=== PATIENT | female | born 1940 | race Caucasian/White ===

== ENCOUNTER 2023-10-30 11:01 | Emergency (ER) | payer MEDICARE, SELFPAY ==
[2023-10-30 11:14] VITALS: BP 141/73; PULSE 70; RESP 16; TEMP 36.8; O2SAT 93
--- NOTE | 2023-10-30 11:15 | XRR_ITS ---
PROCEDURE INFORMATION: Exam: XR Chest Exam date and time: 10/30/2023 11:22 AM Age: 82 years old Clinical indication: Other: Weakness TECHNIQUE: Imaging protocol: Radiologic exam of the chest. Views: 1 view. COMPARISON: No relevant prior studies available. FINDINGS: Lungs: Slight infiltrate, atelectasis, and/or scarring/fibrosis lung bases bilaterally, right perihilar area, of uncertain age. Pleural spaces: No large or obvious pneumothorax nor pleural effusion seen. Heart/Mediastinum: Heart size appears upper limits of normal. Vasculature: Atherosclerotic disease aorta. Bones/joints: Curvature, degenerative changes spine. Other findings: Patient appears rotated slightly to the right. XR/XR chest 1V portable [id number] IMPRESSION: Slight infiltrate, atelectasis, and/or scarring/fibrosis lung bases bilaterally, right perihilar area, of uncertain age.
--- NOTE | 2023-10-30 11:22 | USCV_ITS ---
Deb Du Age: 82 Gender: F : 1940 Exam Date: 10/30/2023 11:52 Ordering Phys: Jorge Hernandez MD Technologist: Exam Location: [facility] [place] Indication: bilat edema PROCEDURES: Venous duplex imaging was performed in bilateral lower extremities. The venous duplex Doppler examination of both lower extremities was performed in the standard fashion. FINDINGS: Normal 2-D Doppler and augmentation and compressibility throughout the lower extremity venous structures. Additional imaging through the proximal calf veins also reveals no thrombus. Limited evaluation of the greater saphenous vein is patent with no thrombus. CONCLUSIONS No evidence of right lower extremity DVT. No evidence of left lower extremity DVT. Carl Buckner MD (Electronically Signed) Final Date: 30 Oct 2023 15:22 S
--- NOTE | 2023-10-30 11:28 | ED_ITS ---
HPI - General Adult 2 General: Chief complaint: General Medical Stated complaint: ankle swelling, decreased urine, fatigue, low bp Time Seen by Provider: 10/30/23 11:08 Source: patient Mode of arrival: ambulatory Limitations: no limitations History of Present Illness: 82-year-old female states over the last 5 to 6 days she has been having some increased swelling in her ankles along with a slight weight gain. She states she had some decreased urination and fatigue she denies any leg pain denies any shortness of breath denies any chest pain have a history of A-fib states she is on a water pill as well. Denies any vomiting or diarrhea Associated symptoms: Deny chest pain, dyspnea, headache(s), nausea, rash or vomiting Review of Systems 2 Const: Reports: fatigue; Denies: fever(s), chills, body aches or change in appetite ENMT: Denies: throat pain or dental pain Card: Denies: chest pain Resp: Denies: dyspnea GI: Denies: abdominal pain, nausea, vomiting or diarrhea : Reports: oliguria; Denies: dysuria Musc: Reports: extremity swelling; Denies: neck pain or back pain Skin/Breast: Denies: rash Neuro: Denies: headache(s) Physical Exam 2 Const: COMMON NORMALS: patient oriented x3 HENMT: COMMON NORMALS: normocephalic and atraumatic HEAD & SCALP: n ormocephalic and atraumatic Eye: COMMON NORMALS: conjunctivae normal CONJUNCTIVA: Yes conjunctivae normal Neck/C-Spine: COMMON NORMALS: full ROM and supple Chest: COMMONS NORMALS: normal inspection of the chest and normal palpation of entire chest wall Resp: COMMON NORMALS: normal respiratory effort, No retractions, No use of accessory muscles and clear to auscultation bilaterally AUSCULTATION: clear to auscultation bilaterally Cardio: COMMON NORMALS: regular rate, regular rhythm and No murmurs present (Cardio) RATE: regular rate RHYTHM: regular rhythm GI: COMMON NORMALS: Normal to inspection, nondistended, normoactive bowel sounds present, Soft to palpation, non-tender and no masses PALPATION: Yes Soft to palpation Extremity: COMMON NORMALS: full ROM NARRATIVE EXTREMITY EXAM: 1+ edema Neuro: COMMON NORMALS: patient oriented x3, moves all extremities and no focal motor deficits Psych: COMMON NORMALS: mental status grossly normal, Normal thought process present and cooperative THOUGHT PROCESS: Normal thought process present Skin: COMMON NORMALS: no rashes or lesions noted and no wounds GENERAL SKIN EXAM: no rashes or lesions noted Course 2 Vital Signs: Vital signs: Vital Signs Temperature 98.3 F 10/30/23 11:14 Pulse Rate 67 10/30/23 12:30 Respiratory Rate 18 10/30/23 11:38 Blood Pressure 144/76 10/30/23 12:19 Pulse Oximetry 92 10/30/23 12:30 Oxygen Delivery Me thod Room Air 10/30/23 12:30 MDM - General Adult Medical Decision Making Patient presents here with lower extremity edema. Slight pneumonia on x-ray she has been well-appearing here no signs of severe heart failure she feels improved after IV Lasix she is continue home meds will start on doxycycline follow-up with PCP return if worsening. Medical Records I reviewed the patient's medical records. Lab Data I reviewed the patient's lab results. 10/30/23 11:32 10/30/23 11:32 Radiology Impressions Chest X-Ray 10/30/23 11:15 IMPRESSION: Slight infiltrate, atelectasis, and/or scarring/fibrosis lung bases bilaterally, right perihilar area, of uncertain age. Laboratory Results WBC 7.95 10^3/uL (3.29-11.43) 10/30/23 11:32 RBC 4.41 10^6/uL (3.85-5.65) 10/30/23 11:32 Hgb 13.10 g/dL (11.27-16.99) 10/30/23 11:32 Hct 39.6 % (36-47) 10/30/23 11:32 MCV 89.8 fl (85-98) 10/30/23 11:32 MCH 29.7 pg (27-33) 10/30/23 11:32 MCHC 33.1 g/dL (30-55) 10/30/23 11:32 RDW 13.7 % (12.1-15.1) 10/30/23 11:32 Plt Count 278 10^3/cmm (157-399) 10/30/23 11:32 MPV 9.3 fL (7.4-10.4) 10/30/23 11:32 Neut % (Auto) 72.3 % 10/30/23 11:32 Lymph % (Auto) 16.9 % 10/30/23 11:32 [place] % (Auto) 6.8 % 10/30/23 11:32 Eos % (Auto) 3.0 % 10/30/23 11:32 Baso % (Auto) 0.5 % 10/30/23 11:32 Neut # (Auto) 5.75 10^3/uL (1.8-7.7) 10/30/23 11:32 Lymph # (Auto) 1.3 10^3/uL (0.8-4.8) 10/30/23 11:32 [place] # (Auto) 0.5 10^3/uL (0.2-0.9) 10/30/23 11:32 Eos # (Auto) 0.2 10^3/uL (0.0-0.8) 10/30/23 11:32 Baso # (Auto) 0.0 10^3/uL (0.0-0.1) 10/30/23 11:32 Nucleated RBC % (auto) 0 % 10/30/23 11:32 Nucleated RBCs # 0.0 /100WBC 10/30/23 11:32 PT 12.90 SECONDS (12.1-14.9) 10/30/23 11:32 INR 0.95 (0.8-1.2) 10/30/23 11:32 Sodium 140 mmol/L (136-145) 10/30/23 11:32 Potassium 4.0 mmol/L (3.5-5.1) 10/30/23 11:32 Chloride 104 mmol/L (98-107) 10/30/23 11:32 Carbon Dioxide 23 mmol/L (22-29) 10/30/23 11:32 Anion Gap 17.0 (5-19) 10/30/23 11:32 BUN 11 mg/dL (8-23) 10/30/23 11:32 Creatinine 0.4 mg/dL (0.5-0.9) L 10/30/23 11:32 GFR Calculation Not Reportable 10/30/23 11:32 Glucose 111 mg/dL (65-115) 10/30/23 11:32 Calculated Osmolality 290 mOsm/kg (285-295) 10/30/23 11:32 Calcium 9.7 mg/dL (8.5-10.5) 10/30/23 11:32 Total Bilirubin 0.4 mg/dL (0.15-1.2) 10/30/23 11:32 AST 19 U/L (0-32) 10/30/23 11:32 ALT 14 U/L (0-33) 10/30/23 11:32 Alkaline Phosphatase 110 U/L (35-105) H 10/30/23 11:32 NT-Pro-B Natriuret Pep 2141 pg/mL (0-450) H 10/30/23 11:32 Total Protein 7.1 g/dL (6.6-8.7) 10/30/23 11:32 Albumin 4.0 g/dL (3.5-5.2) 10/30/23 11:32 Globulin 3.1 g/dL (1.3-4.6) 10/30/23 11:32 TSH 1.27 uIU/mL (0.27-4.20) 10/30/23 11:32 Urine Color Yellow (Yellow) 10/30/23 11:45 Urine Appearance Clear (CLEAR) 10/30/23 11:45 Urine pH 6 (5-7) 10/30/23 11:45 Ur Specific [place] 1.005 (1.005-1.030) 10/30/23 11:45 Urine Protein Neg (Negative) 10/30/23 11:45 Urine Glucose (UA) Norm (Normal) 10/30/23 11:45 Urine Ketones Negative (Negative) 10/30/23 11:45 Urine Blood Neg (Negative) 10/30/23 11:45 Urine Nitrate Negative (Negative) 10/30/23 11:45 Urine Bilirubin Neg (Negative) 10/30/23 11:45 Urine Urobilinogen Norm mg/dL (Negative) 10/30/23 11:45 Ur Leukocyte Esterase Negative (Negative) 10/30/23 11:45 All radiology interpretation(s) finalized by discharge EKG Data EKG 1: I personally reviewed and interpreted this EKG as follows: EKG interpretation date: 10/30/23 EKG interpretation time: 12:16 Interpretation: nsr hr [address] or t wave abnormalities qrs 98 qtc 433 Computer generated interpretation: Chest X-Ray 10/30/23 11:15 IMPRESSION: Slight infiltrate, atelectasis, and/or scarring/fibrosis lung bases bilaterally, right perihilar area, of uncertain age. Discharge Plan Discharge Patient Disposition: Home Clinical Impression: Pneumonia, Bilateral edema of lower extremity Condition: Stable Prescriptions: New doxycycline hyclate 100 mg tablet 100 mg PO BID 7 Days Qty: 14 0RF No Action trazodone 50 mg tablet 50 mg PO BEDTIME pravastatin 40 mg tablet 40 mg PO DAILY sertraline 100 mg Tablet 100 mg PO DAILY vitamin A 3,000 mcg (10,000 unit) Capsule 3,000 mcg PO DAILY gemfibrozil 600 mg tablet 600 mg PO BID gabapentin 300 mg capsule 300 mg PO TID montelukast 10 mg tablet 10 mg PO DAILY hydrochlorothiazide 25 mg tablet 25 mg PO QAM fluocinonide 0.05 % solution 1 applic TOPICAL BID PRN (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
[2023-10-30 11:38] VITALS: BP 139/75; PULSE 64; RESP 18; O2SAT 90
[2023-10-30 11:40] LABS: Basophils % 0.5 %; Eosinophils # 0.2 10^3/uL (0.0-0.8); Hematocrit 39.6 % (36-47); Lymphocytes # 1.3 10^3/uL (0.8-4.8); Lymphocytes % 16.9 %; Mean Corpuscular HGB Conc 33.1 g/dL (30-55); Mean Corpuscular Hemoglobin 29.7 pg (27-33); Mean Corpuscular Volume 89.8 fl (85-98); Mean Platelet Volume 9.3 fL (7.4-10.4); Monocytes # 0.5 10^3/uL (0.2-0.9); Monocytes % 6.8 %; Neutrophils # 5.75 10^3/uL (1.8-7.7); Neutrophils % 72.3 %; Nucleated Red Blood Cells % 0 %; Platelet Count 278 10^3/cmm (157-399); Red Blood Count 4.41 10^6/uL (3.85-5.65); Red Cell Distribution Width 13.7 % (12.1-15.1); White Blood Count 7.95 10^3/uL (3.29-11.43)
[2023-10-30 11:51] LABS: INR 0.95 (0.8-1.2)
[2023-10-30 12:03] LABS: Add Urine Microscopic? NO; Charge for UA Resulting for Rev
[2023-10-30 12:04] LABS: Glucose Urine UA Norm (Normal); Ketones Urine Negative (Negative); Protein Urine Neg (Negative); Specific Gravity, Urine 1.005 (1.005-1.030); Urine Appearance Clear (CLEAR); Urine Color Yellow (Yellow); pH Urine 6 (5-7)
[2023-10-30 12:05] LABS: Bilirubin Urine Neg (Negative); Blood Urine Neg (Negative); Leukocyte Esterase Urine Negative (Negative); Nitrate Urine Negative (Negative); Urobilinogen Urine Norm (Negative)
[2023-10-30 12:08] LABS: Alanine Aminotransferase 14 U/L (0-33); Alkaline Phosphatase 110 U/L (35-105); Aspartate Amino Transferase 19 U/L (0-32); Blood Urea Nitrogen 11 mg/dL (8-23); Calcium 9.7 mg/dL (8.5-10.5); Carbon Dioxide 23 mmol/L (22-29); Chloride 104 mmol/L (98-107); Globulin 3.1 g/dL (1.3-4.6); Glucose 111 mg/dL (65-115); NT Pro B Type Natriuretic Pept 2141 pg/mL (0-450); Osmolality Calculated 290 mOsm/kg (285-295); Sodium 140 mmol/L (136-145); Thyroid Stimulating Hormone 1.27 uIU/mL (0.27-4.20); Total Bilirubin 0.4 mg/dL (0.15-1.2); Total Protein 7.1 g/dL (6.6-8.7)
--- NOTE | 2023-10-30 12:16 | ECG_ITS ---
[facility] Test Date: 2023-10-30 Pat Name: Deb Du Department: Room: Gender: Female Winch Operator: : 1940 Requested By: Jorge Hernandez Order Number: [id number] Yobany MD: Shikha Grant M.D. Measurements Intervals [place] Rate: 65 P: 69 UT: 203 QRS: 44 QRSD: 98 T: 34 QT: 422 QTc: 440 Interpretive Statements SINUS RHYTHM No previous ECG available for comparison Electronically Signed On 10-30-2023 22:56:09 CDT by Shikha Grant M.D. [email or web address]
[2023-10-30 12:19] VITALS: BP 144/76; PULSE 67; O2SAT 95
[2023-10-30] MEDS: FUROsemide 10 mg/mL SDV 4mL 40 MG IVP (12:27)
[2023-10-30 12:30] VITALS: PULSE 67; O2SAT 92
== END 2023-10-30 13:05 | disposition home or self-care (01) ==
PROVIDERS: Emergency Provider Emergency Medicine
DX: J18.9 Pneumonia, unspecified organism (principal); R60.0 Localized edema; Z79.01 Long term (current) use of anticoagulants
CPT/HCPCS: 71045; 80053; 81003; 83880; 84443; 85025; 85610; 93005; 93970; 96374; 99285; J1940